=== PATIENT | female | born 1975 | race Caucasian/White ===

== ENCOUNTER → 2017-04-10 | Outpatient (CLI) | payer BC ==
[~2017-04-10] MED LIST: FLVUNK PO; IBUP600T44 PO; Iron PO; OXYC-57 PO; PRENTAB26 PO
== END | disposition home or self-care (01) ==
LOC: C.PAPS 11:00
PROVIDERS: ATTEND Obstetrics & Gynecology
DX: Z01.419 Encounter for gynecological examination (general) (routine) without abnormal findings (principal)

== ENCOUNTER → 2018-01-03 | Outpatient (CLI) | payer BC ==
--- NOTE | 2018-01-06 14:33 | MAMMOGRAPHY REPORT ---
BILATERAL DIGITAL SCREENING MAMMOGRAM TOMOSYNTHESIS WITH CAD: 01/03/2018 CLINICAL HISTORY: Routine screening. Patient has no complaints. TECHNIQUE: Breast tomosynthesis in addition to standard 2D mammography was performed. Current study was also evaluated with a Computer Aided Detection (CAD) system. COMPARISON: Comparison is made to exam dated: 02/07/2016 mammogram - [facility]. BREAST COMPOSITION: There are scattered areas of fibroglandular density in both breasts. FINDINGS: No suspicious masses, calcifications, or areas of architectural distortion are noted in ei ther breast. There has been no significant interval change compared to prior exams. IMPRESSION: ACR BI-RADS CATEGORY 1: NEGATIVE There is no mammographic evidence of malignancy. A 1 year screening mammogram is recommended. The pa tient will receive written notification of the results. Approximately 10% of breast cancers are not detected with mammography. A negative mammographic report should not delay biopsy if a clinically suggestive mass is present. Alma Mcdowell M.D. ah/:01/03/2018 15:40:15 [employer]wn [employer] Specialist: Deysi Granados, [facility] letter sent: Normal 1/2 BI-RADS Code: ACR BI-RADS Category 1: Negative
== END | disposition home or self-care (01) ==
LOC: C.MAMM 14:34
PROVIDERS: ATTEND Obstetrics & Gynecology
DX: Z12.31 Encounter for screening mammogram for malignant neoplasm of breast (principal)

== ENCOUNTER → 2018-04-18 | Outpatient (CLI) | payer BC | END | disposition home or self-care (01) | LOC: C.PAPS 11:17 | PROVIDERS: ATTEND Obstetrics & Gynecology | DX: Z01.419 Encounter for gynecological examination (general) (routine) without abnormal findings (principal) ==